=== PATIENT | female | born 1965 | race Caucasian/White ===

== ENCOUNTER → 2023-11-21 13:54 | Outpatient (REF) | payer BC, SELFPAY | LOC: WDC 13:54 | PROVIDERS: ATTENDING PHYSICIAN Specialist; FAMILY PHYSICIAN Internal Medicine | DX: Z12.31 Encounter for screening mammogram for malignant neoplasm of breast (principal) | CPT/HCPCS: 77063; 77067 ==

== ENCOUNTER 2024-01-07 16:17 | Emergency (ER) | payer BC, SELFPAY ==
[2024-01-07 16:18] VITALS: BP 125/65
--- NOTE | 2024-01-07 17:46 | ED.GENMED ---
History of Present Illness
General
Chief Complaint: Fall
Source: patient
Exam Limitations: none
Time Seen by Provider: 01/07/24 17:16
Nursing documentation reviewed up to this point in time: agreed with
Travel History
Have you had any contact with someone who has COVID-19?: No
Do you have any symptoms of coronavirus? Fever > 100 degrees, chills, cough, shortness of breath, sore throat, loss of taste or smell, muscle aches, or headache?: No
History of Present Illness
History of Present Illness:
58-year-old female with past medical history of IBS depression presenting to the emergency department today after falling off a horse hitting her head did not lose consciousness was wearing a helmet does have some ongoing discomfort to the side of
her head. Scraped her left elbow but using her extremities normally.
Past History
Past History
ED Past Medical History: None
ED Past Surgical History: None
Social History
Tobacco: Former smoker (Quit 1 year ago. Used to smoke half a pack per day x30 years)
Alcohol: None
Drug: None
Review of Systems
Review of Systems
Allergies reviewed?: Yes
All Other Systems: ROS reviewed and negative except as documented in HPI and ROS
Phy Exam
Physical Exam
Physical Exam:
GENERAL: Alert , in no apparent distress
EYE: pupils equal and reactive
NECK: Supple, no significant adenopathy.
ENT: o/p clr, mmm.
CARDIAC: Regular rate and rhythm .
LUNGS: Clear breath sounds bilaterally, no acute respiratory distress, no wheezes/rales/rhonchi
ABDOMEN: Soft, without focal tenderness, no r/g, no cvat
NEUROLOGICAL: Alert and oriented, no focal neuro deficits motor 5 upper and lower extremity strength normal sensation when palpating bilaterally normal finger-nose [id number] no pronator drift
SKIN: Superficial abrasion to the left elbow region warm and dry, skin intact.
MUSCULOSKELETAL: No edema, well perfused.
PSYCH: Normal and appropriate interaction.
Course
Orders/Labs/Results
Orders:
Orders
01/07/24 17:29
CT Head W/o Iv Contrast Urgent
Comment:
Reason For Exam: head injury
Vital Signs
Initial and Last Documented VS:
Initial Vital Signs
Temp Pulse Resp BP Pulse Ox
98 F 58 20 125/65 95
01/07/24 16:18 01/07/24 16:18 01/07/24 16:18 01/07/24 16:18 01/07/24 16:18
Last Documented Vital Signs
Temp Pulse Resp BP Pulse Ox
98 F 58 20 125/65 95
01/07/24 16:18 01/07/24 16:18 01/07/24 16:18 01/07/24 16:18 01/07/24 16:18
MDM/Problems Addressed
MDM/Problems Addressed:
58-year-old female presenting to the emergency department after falling off a horse hitting her head did not lose consciousness but has had mild lightheadedness headache. Normal neurologic evaluation here. Patient's concern concern was a
significant height. Concerning this CT scan was performed. CT without signs of emergent findings. Patient with likely mild concussion stable for discharge home. Return precautions given
*Critical Care Note
Total Time (30-74mins, 75-104mins- exclusive of procedures): Not Applicable
ED Attending Note
-
Portions of this chart may have been created with voice recognition software.� Occasional wrong word or��sound alike� substitutions may have occurred due to the inherent limitations of voice recognition software.
Discharge Plan
Departure
Patient Disposition: Home (Routine Discharge)
Date of Disposition: 01/07/24
Time of Disposition: 19:11
Patient with high blood pressure during this ER visit?: No
Condition: Good
Covid-19: Not Applicable
Discharge Problem:
Mild closed head injury
Instructions: Minor Head Injury (DC)
Prescriptions:
No Action
valacyclovir 500 MG tablet
500 mg PO PRN PRN (Reason: herpes)
pantoprazole 40 MG tablet,delayed release (DR/EC)
40 mg PO DAILY
escitalopram oxalate 20 MG tablet
40 mg PO DAILY
bupropion HCl 300 MG tablet extended release 24 hr
150 mg PO DAILY
cholecalciferol (vitamin D3) 2,000 UNITS tablet
2,000 units PO DAILY
linaclotide [Linzess] 290 MCG capsule
290 mcg PO DAILY
calcium-vitamin D3-vitamin K 1 EACH tablet,chewable
1 tab PO DAILY
Lactobacillus Combo No.10 [Probiotic] 1 EACH Capsule
1 ea PO DAILY
Zinc
1 tab PO DAILY
Referrals:
Robi Lofton DO [Family Provider] -
Activity Restrictions/Additional Instructions:
You came to the emergency department after head injury. Here you had a normal CT scan. You may have a mild concussion. Please rest over the next few days as symptoms will hopefully improve. Please follow closely with the primary care doctor for
any ongoing symptoms. Return to the emergency department for any worsening, new or concerning symptoms.
Interventions
Interventions:
*Risk Screen - Suicide Last Done: 01/07/24 16:18
*General Assessment Last Done: 01/07/24 16:18
*Neglect/Abuse Screening Last Done: 01/07/24 16:18
ED- Fall Risk Assessment Last Done: 01/07/24 17:35
*ED COVID-19 Vaccine History Last Done: 01/07/24 17:35
ED-Musculoskeletal Assessment Last Done: 01/07/24 17:35
ED- Neurological Assessment Last Done: 01/07/24 17:35
ED-Skin Assessment Last Done: 01/07/24 17:35
Discharge Date and Time
Print Language: AUSTR[place]
== END 2024-01-07 19:24 | disposition home or self-care (01) ==
LOC: EMR 16:17
PROVIDERS: EMERGENCY PHYSICIAN Student in an Organized Health Care Education/Training Program; FAMILY PHYSICIAN Internal Medicine
DX: S09.90XA Unspecified injury of head, initial encounter (principal); S50.312A Abrasion of left elbow, initial encounter; V80.010A Animal-rider injured by fall from or being thrown from horse in noncollision accident, initial encounter; Z87.891 Personal history of nicotine dependence
CPT/HCPCS: 99284; 70450

== ENCOUNTER → 2025-03-11 18:55 | Outpatient (REF) | payer OTHER, SELFPAY | LOC: WDC 18:55 | PROVIDERS: ATTENDING PHYSICIAN Internal Medicine | DX: Z12.31 Encounter for screening mammogram for malignant neoplasm of breast (principal) | CPT/HCPCS: 77063; 77067 ==